=== PATIENT | male | born 1985 | race Caucasian/White ===

== ENCOUNTER 2021-02-01 19:36 | Emergency (ER) | payer SELFPAY ==
[~2021-02-01] VITALS: Ht 170.2 cm; Wt 79.5 kg
[~2021-02-01 19:36] MED LIST: DIPH-423 PO; HYDR1TAB PO; IBUP-1984 PO; NO HOME MEDS; PRED20TA PO; SULF-117 PO
[2021-02-01 20:14] VITALS: BP 131/80
--- NOTE | 2021-02-01 20:45 | NUR ---
ADVISED CONVERTING TECHNICIAN JOSHUA OF PT DECREASED SENSATION DISTAL TO INJURIES
--- NOTE | 2021-02-01 20:45 | NUR ---
Marty holland in ED - 02/01/21 at 2337 by MARK ADVISED DELTA LEWIS OF PT'S HEMATOMA/LUMP ON BACK OF HEAD.
== END 2021-02-02 02:58 | disposition left against medical advice (07) ==
LOC: ER 19:37
DX: M79.601 Pain in right arm (principal); Z53.21 Procedure and treatment not carried out due to patient leaving prior to being seen by health care provider
CPT/HCPCS: 73080; 73140

== ENCOUNTER 2021-03-24 04:04 | Emergency (ER) | payer MEDICAID ==
[~2021-03-24] VITALS: Ht 170.2 cm; Wt 80.0 kg
[2021-03-24 04:14] VITALS: BP 123/66
== END 2021-03-24 13:52 | disposition left against medical advice (07) ==
LOC: ER 04:05
DX: L02.416 Cutaneous abscess of left lower limb (principal); Z53.21 Procedure and treatment not carried out due to patient leaving prior to being seen by health care provider

== ENCOUNTER 2021-04-01 12:01 | Emergency (ER) | payer MEDICAID ==
[~2021-04-01] VITALS: Ht 170.2 cm; Wt 77.3 kg
== END 2021-04-01 14:05 | disposition home or self-care (01) ==
LOC: ER 12:02
DX: R05 Cough (principal); R61 Generalized hyperhidrosis; R68.83 Chills (without fever); Z20.822 Contact with and (suspected) exposure to COVID-19
CPT/HCPCS: 87635; 99283; C9803

== ENCOUNTER 2021-05-07 07:47 | Emergency (ER) | payer MEDICAID ==
[~2021-05-07] VITALS: Ht 167.6 cm; Wt 77.3 kg
[2021-05-07 07:56] VITALS: BP 142/88
== END 2021-05-07 09:12 | disposition home or self-care (01) ==
LOC: ER 07:48
DX: F15.10 Other stimulant abuse, uncomplicated (principal); F12.90 Cannabis use, unspecified, uncomplicated; Z72.89 Other problems related to lifestyle; Z56.0 Unemployment, unspecified; Z88.1 Allergy status to other antibiotic agents; Z88.8 Allergy status to other drugs, medicaments and biological substances; Z79.2 Long term (current) use of antibiotics; Z79.899 Other long term (current) drug therapy
CPT/HCPCS: 99281